=== PATIENT | female | born 1940 | race Two or more races ===

== ENCOUNTER 2018-08-11 08:53 | Emergency (ER) | payer OTHER ==
[~2018-08-11] VITALS: Ht 160 cm; Wt 59.9 kg
[~2018-08-11 08:53] MED LIST: SIMVASTATIN20 MG; SYNTHROID50 MCG
== END 2018-08-11 12:23 | disposition home or self-care (01) ==
LOC: ER 08:53
DX: S00.03XA Contusion of scalp, initial encounter (principal); R42 Dizziness and giddiness; W18.09XA Striking against other object with subsequent fall, initial encounter; Y93.89 Activity, other specified; Y92.018 Other place in single-family (private) house as the place of occurrence of the external cause; Y99.8 Other external cause status

== ENCOUNTER 2018-08-21 07:53 | Emergency (ER) | payer OTHER ==
[~2018-08-21] VITALS: Ht 157.5 cm; Wt 54.4 kg
== END 2018-08-21 14:44 | disposition home or self-care (01) ==
LOC: ER 07:53
DX: K57.32 Diverticulitis of large intestine without perforation or abscess without bleeding (principal); R10.84 Generalized abdominal pain

== ENCOUNTER 2019-02-17 14:46 | Outpatient (CLI) | payer OTHER | END 2019-02-17 14:59 | disposition home or self-care (01) | LOC: RAD 501 14:46 | DX: Z98.41 Cataract extraction status, right eye (principal); H25.011 Cortical age-related cataract, right eye ==

== ENCOUNTER 2019-03-05 09:52 | Emergency (ER) | payer OTHER ==
[~2019-03-05] VITALS: Ht 157.5 cm; Wt 59.0 kg
== END 2019-03-05 19:52 | disposition home or self-care (01) ==
LOC: ER 09:52
DX: E87.0 Hyperosmolality and hypernatremia (principal); R51 Headache